=== PATIENT | female | born 1970 | race Two or more races ===

== ENCOUNTER 2021-06-20 10:22 | Inpatient (IN) | payer MEDICAID ==
[~2021-06-20] VITALS: Ht 157.5 cm; Wt 62.6 kg
--- NOTE | 2021-06-20 10:39 | PHYS DOC ---
Past Medical History Past Medical History: CAD, High Cholesterol, Heart Disease, Hypertension, VA Past Surgical History: Angioplasty Smoking Status: Current Every Day Smoker Alcohol Use: None Drug Use: None General Adult EDM: Chief Complaint: CHEST PAIN HPI: HPI: Patient is a 50 year old female who presents via EMS from her long-term facility ([facility] in [place]) for evaluation of chest pain. Chest pain symptoms actually began yesterday, while she was outside smoking a cigarette, then her pain resolved spontaneously. Chest pain recurred again this morning. She describes midsternal and right-sided chest pain, rating to her right shoulder and down her right arm. She describes the pain as a pressure sensation. She denies dyspnea, pleuritic pain, cough, abscess. She does report some mild dizziness and mild nausea, all of which are resolved. She has had history of multiple MIs because of multiple coronary artery stents, multiple stents in her LAD and RCA. She had her last VA in October 2020. She brings with her paperwork indicating her last stents were placed exactly 1 year ago. She has not previously been at this facility. Her previous care had been in [facility]. She is recently to the [facility] after having complications from COVID-19 infection. She also has COPD, she continues to smoke tobacco. EMS gave 324 mg aspirin, 2 nitroglycerin tablets in route. The patient reports that she still had some pain, though shortly after arrival, she reports that her pain resolved. She did have some relative hypotension here, which is improved after IV fluid administration. She does report that this feels like previous VA symptoms. Review of Systems: Review of Systems: Constitutional: Denies fever or chills. [] HENT: Denies nasal congestion or sore throat. [] Respiratory: Denies cough or shortness of breath. Denies pleuritic pain or hemoptysis. Cardiovascular: Reports mid sternal and right sided chest pain. Denies palpi taitons or syncope. GI: Denies abdominal pain, nausea, vomiting : Denies urinary symptoms. Musculoskeletal: Denies back pain or joint pain. [] Integument: Denies rash. [] Neurologic: Denies headache, focal weakness or sensory changes. [] Psychiatric: Denies depression or anxiety. [] Heart Score: C/O Chest Pain: Yes HEART Score for Chest Pain: HEART Score for Chest Pain Response (Comments) Value History Moderately Suspicious 1 ECG Nonspecific Repolarizatio 1 Age >45 - < 65 1 Risk Factors >3 Risk Factors or Hx CAD 2 Troponin < Normal Limit 0 Total 5 Risk Factors: Risk Factors: DM, Current or recent (<one month) smoker, HTN, HLP, family history of CAD, obesity. Risk Scores: Score 0 - 3: 2.5% MACE over next 6 weeks - Discharge Home Score 4 - 6: 20.3% MACE over next 6 weeks - Admit for Clinical Observation Score 7 - 10: 72.7% MACE over next 6 weeks - Early Invasive Strategies Physical Exam: PE: Constitutional: Well developed, well nourished, no acute distress, non-toxic appearance. She appears older than stated age. Chronically ill-appearing. HENT: Normocephalic, atraumatic, oropharynx is patent and clear, mucous membranes are moist Eyes: Conjunctiva normal, no discharge. [] Neck: Normal range of motion, no tenderness, supple, no stridor. Trachea is midline. No JVD. Cardiovascular:Heart rate regular rhythm, +2 radial and +2 posterior tibial pu lses bilaterally Lungs & Thorax: Lungs are clear to auscultation bilateral without rales, rhonchi or wheezes. No stridor. Equal chest rise. No tachypnea, no retractions. Palpation of the right upper chest causes tenderness, reproduces her chest pain. No crepitus or subcutaneous emphysema. No evidence of chest or thorax trauma Abdomen: Abdomen is soft, nondistended, nontender to palpation. No palpable pulsatile mass. No palpable organomegaly. No CVA tenderness. Skin: Warm, dry, no erythema, no rash. [] Back: No tenderness, no CVA tenderness. [] Extremities: No tenderness, no cyanosis, no clubbing, ROM intact, no edema. No calf tenderness. Neurologic: Alert and oriented X 3, normal motor function, normal sensory function, no focal deficits noted. [] Psychologic: Affect is flat, she is cooperative EKG: EKG: EKG is interpreted at 1024 Rhythm is sinus Rate is 81 bpm [place] is normal No STEMI EKG is interpreted at 1132 Rhythm is sinus Rate is 82 bpm [place] is normal No STEMI, no acute changes Radiology/Procedures: Radiology/Procedures: IMAGING REPORT Signed PATIENT: DOMENICO GONZALEZ ACCOUNT: [id number] : 1970 LOCATION: ER AGE: 50 SEX: F EXAM STATUS: REG ER ORD. PHYSICIAN: PRERNA ROSAS DO REASON: chest pain PROCEDURE: PORTABLE CHEST 1V Exam Date: 06/20/2021 10:56 AM XR CHEST 1V Indication: Reason: chest pain / Spl. Instructions: / History: . FINDINGS/ IMPRESSION: The cardiac silhouette and pulmonary vasculature are within normal limits. There is no focal consolidation, pleural effusion or pneumothorax. The visualized osseous structures are intact. Electronically signed by: Raissa Mejía MD (06/20/2021 11:10 AM) [id number] DICTATED and SIGNED BY: RAISSA MEJÍA MD DATE: 06/20/21 1110 Course & Med Decision Making: Course & Med Decision Making Pertinent Labs and Imaging studies reviewed. (See chart for details) The findings, differential diagnosis and plan of care discussed with the patient. Relative hypotension resolved after IV fluid administration. She reports no further chest pain at this time. Dr. Vázquez reviewed EKG, agrees with no acute ischemia, no STEMI. The patient will be admitted, cardiology will be consulted. The patient is accepted for admission by Dr. Monteiro. Savage Disclaimer: Savage Disclaimer: This electronic medical record was generated, in whole or in part, using a voice recognition dictation system. Departure Departure Impression: Primary Impression: Chest pain Qualified Codes: R07.9 - Chest pain, unspecified Additional Impressions: Coronary artery disease Qualified Codes: I25.10 - Atherosclerotic heart disease of [place] coronary artery without angina pectoris History of VA (myocardial infarction) Disposition: ADMITTED INPATIENT Admitting Physician: Madi. Ross Condition: STABLE Referrals: MARTI MONTEIRO MD (PCP) PRERNA ROSAS DO Jun 20, 2021 10:39
[2021-06-20 10:48] LABS: BASO # 0.1 x10^3/uL (0.0-0.2); BASO % 1 % (0-3); EOS # 0.6 x10^3/uL (0.0-0.7); EOS % 7 % (0-3); HEMATOCRIT 28.2 % (36.0-47.0); HEMOGLOBIN 9.3 g/dL (12.0-15.5); LYMPH % 23 % (24-48); MEAN CORPUSCULAR HEMOGLOBIN 32 pg (25-35); MEAN CORPUSCULAR HGB CONC 33 g/dL (31-37); MEAN CORPUSCULAR VOLUME 96 fL (79-100); MONO # 0.8 x10^3/uL (0.0-1.1); MONO % 9 % (0-9); NEUT # 5.4 x10^3/uL (1.8-7.7); NEUT % 61 % (31-73); PLATELET COUNT 371 x10^3/uL (140-400); RED BLOOD COUNT 2.94 x10^6/uL (3.50-5.40); RED CELL DISTRIBUTION WIDTH 14.3 % (11.5-14.5); WHITE BLOOD COUNT 8.8 x10^3/uL (4.0-11.0)
[2021-06-20 11:01] LABS: CALCIUM 9.3 mg/dL (8.5-10.1); GFR 58.2; POTASSIUM 4.5 mmol/L (3.5-5.1)
[2021-06-20 11:04] LABS: BACTERIA,URINE FEW /HPF (0-FEW); RBC,URINE 0 /HPF (0-2)
[2021-06-20 11:07] LABS: ALBUMIN 3.5 g/dL (3.4-5.0); TOTAL BILIRUBIN 0.2 mg/dL (0.2-1.0); TOTAL PROTEIN 7.1 g/dL (6.4-8.2)
--- NOTE | 2021-06-20 11:13 | RAD ---
Exam Date: 06/20/2021 10:56 AM XR CHEST 1V Indication: Reason: chest pain / Spl. Instructions: / History: . FINDINGS/ IMPRESSION: The cardiac silhouette and pulmonary vasculature are within normal limits. There is no focal consolidation, pleural effusion or pneumothorax. The visualized osseous structures are intact. Electronically signed by: Thomas Mejía MD (06/20/2021 11:10 AM) [id number]
[2021-06-20] MEDS ORDERED: IV NORMAL SALINE 1000ML BAG 1,000 ML IV ONE (11:45)
--- NOTE | 2021-06-20 11:54 | EKG ---
[facility] [address] [place] [address] Test Date: 2021-06-20 Test Time: 10:24:02 Pat Name: DOMENICO GONZALEZ Department: Room: [facility] Gender: F Surgical Pathologist: : 1970 Requested By: PRERNA ROSAS Order Number: [id number] Reading MD: Haris Durham Measurements Intervals [place] Rate: 81 P: 34 [place]: 160 QRS: 27 QRSD: 82 T: 121 QT: 350 QTc: 412 Interpretive Statements SINUS RHYTHM LOW LIMB LEAD VOLTAGE ST & T ABNORMALITY, CONSIDER ANTEROLATERAL ISCHEMIA OR LEFT VENTRICULAR STRAIN Electronically Signed On 06-22-2021 21:30:41 CDT by Haris Durham
--- NOTE | 2021-06-20 11:55 | EKG ---
[facility] [address] [place] [address] Test Date: 2021-06-20 Test Time: 11:30:05 Pat Name: DOMENICO GONZALEZ Department: Room: [facility] Gender: F Certified Pharmacy Tech: : 1970 Requested By: PRERNA ROSAS Order Number: [id number] Reading MD: Haris Durham Measurements Intervals [place] Rate: 82 P: 59 CT: 176 QRS: 35 QRSD: 82 T: 115 QT: 358 QTc: 421 Interpretive Statements SINUS RHYTHM LOW LIMB LEAD VOLTAGE ST & T ABNORMALITY, CONSIDER ANTEROLATERAL ISCHEMIA OR LEFT VENTRICULAR STRAIN Electronically Signed On 06-22-2021 21:29:35 CDT by Haris Durham
[2021-06-20 12:30] VITALS: BP 96/58
[2021-06-20 14:44] VITALS: BP 105/56
[2021-06-20 19:39] VITALS: BP 106/55
[2021-06-20] MEDS ORDERED: MENT118G TP (22:03)
[2021-06-20] MEDS ORDERED: ACET325T21 PO (22:03)
[2021-06-20] MEDS ORDERED: ALBU2.5V14 NEB (22:03)
[2021-06-20] MEDS ORDERED: CYAN100031 PO (22:03)
[2021-06-20] MEDS ORDERED: BUME2TAB3 PO (22:03)
[2021-06-20] MEDS ORDERED: INSU100V6 SQ (22:03)
[2021-06-20] MEDS ORDERED: MAGN400T48 PO (22:03)
[2021-06-20] MEDS ORDERED: FERR324T14 PO (22:03)
[2021-06-20] MEDS ORDERED: TIOT18CA IH (22:03)
[2021-06-20] MEDS ORDERED: METO25TA4 PO (22:03)
[2021-06-20] MEDS ORDERED: ASPI-630 PO (22:03)
[2021-06-20] MEDS ORDERED: VENL75TA PO (22:03)
[2021-06-20] MEDS ORDERED: INSU100I13 SQ (22:03)
[2021-06-20] MEDS ORDERED: FLUT16SP NS (22:03)
[2021-06-20] MEDS ORDERED: TICA90TA PO (22:03)
[2021-06-20] MEDS ORDERED: CETI10TA74 PO (22:03)
[2021-06-20] MEDS ORDERED: FOLI0.4T5 PO (22:03)
[2021-06-20] MEDS ORDERED: LIPITOR80 MG PO (22:03)
[2021-06-20] MEDS ORDERED: MIRT-8 PO (22:03)
[2021-06-20] MEDS ORDERED: TRAM50TA PO (22:03)
[2021-06-20] MEDS ORDERED: FLUTICASONE 50MCG/NASAL SPRAY 16GM BOTTLE. NS PRN (22:15)
[2021-06-20] MEDS ORDERED: traMADol 50 MG TABLET PO PRN (22:15)
[2021-06-20 22:19] VITALS: BP 99/48
[2021-06-20] MEDS: ACETAMINOPHEN 325 MG TABLET. PO PRN (22:37)
[2021-06-20] MEDS ORDERED: METHYL SALICYLATE/MENTHOL TOPICAL CREAM 57GM TUBE. TP PRN (22:45)
[2021-06-20] MEDS: INSULIN GLARGINE SYRINGE. SQ SCH ×2 (23:52→23:59)
[2021-06-20] MEDS: MIRTAZAPINE 15 MG TABLET PO SCH ×2 (23:53→23:58)
[2021-06-20] MEDS: ATORVASTATIN CALCIUM 40 MG TABLET. PO SCH ×2 (23:53→23:58)
[2021-06-20] MEDS: METOPROLOL TART IMMED RELEASE 25 MG TABLET. PO SCH (23:54)
[2021-06-21 02:25] VITALS: BP 105/58
[2021-06-21] MEDS: ALBUTEROL SULFATE 2.5 MG/3 ML NEBU. NEB SCH ×5 (06:00→22:00)
[2021-06-21 07:00] VITALS: BP 83/45
[2021-06-21] MEDS: IPRATRPIUM/ALBUTEROL 0.5/2.5MG 3 ML NEBU. NEB SCH ×4 (08:00→19:18)
[2021-06-21] MEDS: CYANOCOBALAMIN (VITAMIN B-12) 1,000 MCG TABLET. PO SCH (08:13)
[2021-06-21] MEDS: FERROUS SULFATE 325 MG TABLET. PO SCH ×2 (08:14→17:14)
[2021-06-21] MEDS: MAGNESIUM OXIDE 400 MG TABLET PO SCH (08:14)
[2021-06-21] MEDS: ASPIRIN CHEWABLE 81 MG TABLET. PO SCH (08:14)
[2021-06-21] MEDS: CETIRIZINE HCL 10 MG TABLET. PO SCH (08:15)
[2021-06-21] MEDS: TICAGRELOR 90 MG TABLET. PO SCH ×2 (08:15→21:25)
[2021-06-21] MEDS: FOLIC ACID 1 MG TABLET. PO SCH (08:15)
[2021-06-21] MEDS: VENLAFAXINE 75 MG TABLET. PO SCH (08:15)
[2021-06-21] MEDS: INSULIN LISPRO 300 UNITS/3 ML VIAL. SQ SCH ×3 (08:23→17:18)
[2021-06-21] MEDS ORDERED: BUMETANIDE 1 MG TABLET. PO SCH (09:00)
--- NOTE | 2021-06-21 10:25 | PN ---
DATE: 06/21/2021 SUBJECTIVE: The patient is resting, slightly propped up in bed, in no apparent distress. On questioning her, she denied any further episode of chest pain or shortness of breath. She has had 3 sets of cardiac enzyme showed that her initial troponin was 38 ng/L. The second one was 42 and third was 36. EKG was showing sinus rhythm, no evidence of segment elevation or depression. PHYSICAL EXAMINATION: GENERAL: When I examined her, she looked well and was clearly in no apparent respiratory distress. She was pale, but not jaundiced or cyanosed. No thyromegaly. No jugular venous distention. No limb edema. VITAL SIGNS: Her heart rate was 87, blood pressure was 105/56, temperature was 98, respiratory rate was 16 and oxygen saturation was 100% on room air. HEAD, EYES, EARS, NOSE, AND THROAT: Normocephalic, atraumatic. NECK: Supple. HEART: Showed normal first and second heart sounds. No gallop, rub or murmur. CHEST: Clear to auscultation, no crepitation or rhonchi. ABDOMEN: Distended, soft, nontender. NEUROLOGIC: She was grossly intact. ASSESSMENT AND PLAN: In summary, this is a 50-year-old female patient with history of coronary artery disease, status post multiple myocardial infarctions and PCI with stent deployment to the right coronary artery and left anterior descending. She has multiple risk factors. She has hypertension, diabetes, hyperlipidemia, and unfortunately, she continued to smoke despite multiple attempts to convince her otherwise. She was admitted with chest pain that apparently induced twice when she was outside facility smoking. So far, she has 3 sets of cardiac enzymes that ruled out acute myocardial infarction. We are awaiting the evaluation by the able bodied tankerman. Meanwhile, we will continue with all her other medications. DANITZA DR: Dunia TID: [id number]
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
[2021-06-21 11:00] VITALS: BP 91/49
--- NOTE | 2021-06-21 13:22 | PDOC2 ---
PETR PORTILLO BUTTON ATTACHING MACHINE OPERATOR 06/21/21 1322: CARDIAC CONSULT DATE OF CONSULT Date of Consult DATE: 06/21/21 TIME: 13:12 REASON FOR CONSULT Reason for Consult: Chest pain with multiple stents REFERRING PHYSICIAN Referring Physician: Cayetano SOURCE Source: Chart review, Patient HISTORY OF PRESENT ILLNESS HISTORY OF PRESENT ILLNESS This is a 50 yo female admitted for complains of chest pain. She resides at [facility]. she started having chest pain after smoking cigarette this morning which has been recurring. This then went to her right arm. No complains SOA but has had some nausea and dizziness. She has hx of CAD with multiple stents in the past. She has had covid-19 and after recovery was transferred to SNU. She had her stents placed around May of last yr at [facility]. Presently no discomfort. PAST MEDICAL HISTORY Cardiovascular: CAD, CHF, HTN, Hyperlipidemia, Valve insufficiency, Other (ICM) Pulmonary: Asthma, COPD CENTRAL NERVOUS SYSTEM: CVA, TIA GI: No pertinent hx Heme/Onc: Anemia NOS, Other (DVT) Hepatobiliary: Cholelithiasis Psych: No pertinent hx Infectious disease: No pertinent hx ENT: No pertinent hx, Allergic Rhinitis Endocrine: Diabetes (2) Dermatology: No pertinent hx PAST SURGICAL HISTORY Past Surgical History: Cholecystectomy, Other (LLE thrombectomy, PCI with 5 total stents) FAMILY HISTORY Family History: Hypertension SOCIAL HISTORY Smoke: <1 pack per day ALCOHOL: none Drugs: None Lives: [place] CURRENT MEDICATIONS CURRENT MEDICATIONS Current Medications Medications (Trade) Dose Ordered Sig/Todd Route PRN Reason Start Time Stop Time Status Last Admin Dose Admin Acetaminophen (Tylenol) 650 mg PRN Q4HRS PRN PO MILD pain or fever 06/20/21 22:15 06/20/21 22:37 Aspirin (Aspirin Chewable) 81 mg DAILY PO 06/21/21 09:00 06/21/21 08:14 Cetirizine HCl (ZyrTEC) 10 mg DAILY PO 06/21/21 09:00 06/21/21 08:15 Insulin Human Lispro (HumaLOG) 6 units TIDWMEALS SQ 06/21/21 08:00 06/21/21 11:59 Magnesium Oxide (Magnesium Oxide) 400 mg DAILY PO 06/21/21 09:00 06/21/21 08:14 Metoprolol Tartrate (Lopressor) 25 mg BID PO 06/20/21 23:00 06/20/21 23:54 Ticagrelor (Brilinta) 90 mg BID PO 06/21/21 09:00 06/21/21 08:15 Venlafaxine HCl (Effexor) 75 mg DAILY PO 06/21/21 09:00 06/21/21 08:15 Atorvastatin Calcium (Lipitor) 80 mg HS PO 06/20/21 23:00 06/20/21 23:58 Cyanocobalamin (Vitamin B-12) 1,000 mcg DAILY PO 06/21/21 09:00 06/21/21 08:13 Ferrous Sulfate (Feosol) 325 mg BIDWMEALS PO 06/21/21 08:00 06/21/21 08:14 Folic Acid (Folic Acid) 1 mg DAILY PO 06/21/21 09:00 06/21/21 08:15 Insulin Glargine (Lantus Syringe) 20 unit QHS SQ 06/20/21 22:45 06/20/21 23:59 Mirtazapine (Remeron) 30 mg QHS PO 06/20/21 23:00 06/20/21 23:58 ALLERGIES ALLERGIES: Coded Allergies: Penicillins (Verified Allergy, Unknown, 06/20/21) ROS Review of System 14 point ROS evaluated with pertinent positives noted per HPI PHYSICAL EXAM General: Alert, Oriented X3, Cooperative, No acute distress HEENT: Atraumatic, Mucous membr. moist/pink Lungs: Clear to auscultation, Normal air movement Heart: Regular rate (SR), Normal S1, Normal S2, Other (2/6 systolic murmur to LLS border) Abdomen: Soft, No tenderness Extremities: No cyanosis, No edema Skin: No breakdown, No significant lesion Neuro: Normal speech, Sensation intact Psych/Mental Status: Mental status NL, Mood NL MUSCULOSKELETAL: Osteoarthritic changes both hands VITALS/I&O VITALS/I&O: Vital Signs Date Time Temp Pulse Resp B/P (MAP) Pulse Ox O2 Delivery O2 Flow Rate FiO2 06/21/21 11:09 99 Room Air 06/21/21 11:00 97.3 99 18 91/49 (63) 97.3 I & O 06/20/21 06/20/21 06/21/21 15:00 23:00 07:00 Intake Total 1250 ml 420 ml 500 ml Output Total 1200 ml Balance 1250 ml -780 ml 500 ml LABS Lab: Laboratory Tests Test 06/20/21 13:38 06/20/21 16:40 06/20/21 16:47 06/20/21 20:54 Troponin I High Sensitivity 42 ng/L (4-50) 36 ng/L (4-50) Glucose (Fingerstick) 164 mg/dL (70-99) H 309 mg/dL (70-99) H Test 06/21/21 07:51 06/21/21 11:35 Glucose (Fingerstick) 132 mg/dL (70-99) H 131 mg/dL (70-99) H ASSESSMENT/PLAN ASSESSMENT/PLAN 1. Chest pain: trops nml, absent currently 2. CAD: 5 total stents with last placement in 2020 3. Hx of ICM: compensated 4. HTN: BP at low end 5. COPD with continued tobacco use 6. HLP 7. DM2 8. Hx of Covid-19 Recommendations 1. Continue ASA and brilinta. Secondary prevention measures. Continue BP meds if BP is consistently adequate. 2. TTE Repeat troponin 3. Will consider ischemic workup pending test as above. 4. Follow up with Dr. Edwards on July 29 at 1:15 PM REGINE EDWARDS MD 06/21/21 1805: CARDIAC CONSULT ASSESSMENT/PLAN ASSESSMENT/PLAN Patient seen and examined The patient's chest pain has resolved. She is feeling better. I agree with our nurse practitioners assessment and plan. Chest pain: trops nml, recent multiple stents placed. Echo pending. We will continue medical treatment and check a nuclear stress test in the morning. Outpatient follow-up. CAD: 5 total stents with last placement in 2020. Continuing baseline medical treatment including aspirin and Brilinta. Hx of ICM: compensated HTN: BP at low end COPD with continued tobacco use HLP DM2 Hx of Covid-19 PETR PORTILLO BUTTON ATTACHING MACHINE OPERATOR Jun 21, 2021 13:22 REGINE EDWARDS MD Jun 21, 2021 18:05
--- NOTE | 2021-06-21 13:27 | NUR ---
SS following for discharge planning. SS reviewed pt chart and discussed with pt RN. Pt is from home with spouse and is currently on room air. Cardiology consulted. SS will continue to follow for discharge planning. Addendum: 06/21/21 at 1511 by MAURICIO TEAGUE SS CORRECTION TO PREVIOUS NOTE: Pt is from [facility], ; fax [phone]
--- NOTE | 2021-06-21 14:41 | EKG ---
[facility] [address] [place] [address] Test Date: 2021-06-21 Test Time: 14:34:26 Pat Name: DOMENICO GONZALEZ Department: Room: 8 Gender: F Basic Acoustic Analyst: AXEL : 1970 Requested By: PETR PORTILLO Order Number: [id number] Reading MD: Measurements Intervals [place] Rate: 111 P: 63 NM: 146 QRS: 42 QRSD: 80 T: 126 QT: 316 QTc: 433 Interpretive Statements SINUS TACHYCARDIA LOW LIMB LEAD VOLTAGE ST & T ABNORMALITY, CONSIDER ANTEROLATERAL ISCHEMIA OR LEFT VENTRICULAR STRAIN ABNORMAL ECG RI6.02 Compared to ECG 06/20/2021 11:30:05 Sinus rhythm no longer present T-wave abnormality still present Possible ischemia still present
[2021-06-21 14:45] VITALS: BP 103/57
[2021-06-21] MEDS: METOPROLOL TART IMMED RELEASE 25 MG TABLET. PO SCH ×2 (15:48→21:26)
[2021-06-21 19:28] VITALS: BP 119/63
[2021-06-21 23:15] VITALS: BP 108/52
[2021-06-21] MEDS: ACETAMINOPHEN 325 MG TABLET. PO PRN (23:33)
[2021-06-22 03:24] VITALS: BP 99/51
[2021-06-22 07:00] VITALS: BP 89/39
[2021-06-22] MEDS: IPRATRPIUM/ALBUTEROL 0.5/2.5MG 3 ML NEBU. NEB SCH ×4 (07:43→20:37)
[2021-06-22] MEDS: ACETAMINOPHEN 325 MG TABLET. PO PRN (08:39)
[2021-06-22] MEDS ORDERED: REGADENOSON 0.4 MG/5 ML DISP.SYRIN. IV ONE ×2 (08:45→09:30)
--- NOTE | 2021-06-22 09:53 | PN ---
DATE: 06/22/2021 SUBJECTIVE: The patient has no further episodes of chest pain and was complaining of headache. Nursing staff stated that she continued to be hypotensive with a blood pressure rates around 90 mmHg despite holding her bumetanide and metoprolol. She is apparently scheduled for nuclear stress test this morning. PHYSICAL EXAMINATION: GENERAL: On examining her, she looked pale somewhat, not jaundiced or cyanosed. No lymphadenopathy, no thyromegaly. No jugular venous distention. No limb edema. VITAL SIGNS: Her heart rate was 95, blood pressure was 89/39, temperature 97.9, respiratory rate was 16, her oxygen saturation was 95%. HEAD, EYES, EARS, NOSE, AND THROAT: Showed normocephalic, atraumatic. NECK: Supple. HEART: Showed normal first and second heart sounds. No gallop, rub or murmur. CHEST: Clear to auscultation. No crepitation or rhonchi. ABDOMEN: Scaphoid, soft, nontender. NEUROLOGIC: She was grossly intact. Her intake was 2170, output was 1200. LABORATORY WORK: Showed her serum triglycerides 132, total cholesterol 160, LDL was 81, VLDL was 26, HDL was 63 and ratio was 3. Her blood sugar reasonably controlled. ASSESSMENT: Chest pain with normal troponin, coronary artery disease, 5 total stents, the last placement was in 2020, ischemic cardiomyopathy, hypertension, chronic obstructive pulmonary disease. Unfortunately, the patient continued to smoke despite advising her multiple times, hyperlipidemia, type 2 diabetes mellitus. PLAN: The patient is scheduled for transthoracic echocardiogram as well as nuclear stress test. BERNABE PEARCE: Dunia TID: [id number]
[2021-06-22] MEDS: TICAGRELOR 90 MG TABLET. PO SCH ×2 (10:46→20:17)
[2021-06-22] MEDS: ASPIRIN CHEWABLE 81 MG TABLET. PO SCH (10:46)
[2021-06-22] MEDS: CETIRIZINE HCL 10 MG TABLET. PO SCH (10:46)
[2021-06-22 10:47] VITALS: BP 99/45
[2021-06-22] MEDS: MAGNESIUM OXIDE 400 MG TABLET PO SCH (10:47)
[2021-06-22] MEDS: FERROUS SULFATE 325 MG TABLET. PO SCH ×2 (10:47→17:08)
[2021-06-22] MEDS: FOLIC ACID 1 MG TABLET. PO SCH (10:47)
[2021-06-22] MEDS: VENLAFAXINE 75 MG TABLET. PO SCH (10:47)
[2021-06-22] MEDS: CYANOCOBALAMIN (VITAMIN B-12) 1,000 MCG TABLET. PO SCH (10:47)
[2021-06-22] MEDS: INSULIN LISPRO 300 UNITS/3 ML VIAL. SQ SCH ×3 (10:57→17:11)
--- NOTE | 2021-06-22 11:07 | PDOC ---
PROGRESS NOTES Date of Service: DATE: 06/22/21 TIME: 11:07 Subjective Subjective Denied any CP today Objective Objective Vital Signs Date Time Temp Pulse Resp B/P (MAP) Pulse Ox O2 Delivery O2 Flow Rate FiO2 06/22/21 10:47 97.1 109 16 99/45 (63) 99 Room Air 97.1 Intake and Output 06/22/21 07:00 Intake Total 1020 ml Output Total 2300 ml Balance -1280 ml Intake Oral 1020 ml Output Urine Total 2300 ml Physical Exam Abdomen: Soft, No tenderness Heart: Regular rate (SR), Normal S1, Normal S2, Other (2/6 systolic murmur to LLS border) Extremities: No cyanosis, No edema General: Alert, Oriented X3, Cooperative, No acute distress HEENT: Atraumatic, Mucous membr. moist/pink Lungs: Clear to auscultation, Normal air movement MUSCULOSKELETAL: Osteoarthritic changes both hands Neuro: Normal speech, Sensation intact Psych/Mental Status: Mental status NL, Mood NL Skin: No breakdown, No significant lesion Assessment Assessment 1. Chest pain: AL ruled out 2. CAD: 5 total stents with last placement in 2020 3. Hx of ICM: compensated 4. HTN: BP at low end 5. COPD with continued tobacco use 6. HLP 7. DM2 8. Hx of Covid-19 Recommendations 1. Continue ASA and brilinta. Secondary prevention measures. 2. BP running low and initial labs prerenal 3. Decrease bumex dose and repeat labs 4. MPI to rule out ischemia today Plan Plan of Care Problems Medical Problems: (1) Chest pain Status: Acute (2) Coronary artery disease Status: Acute (3) History of AL (myocardial infarction) Status: Acute Comment Review of Relevant I have reviewed the following items emily (where applicable) has been applied. Labs Laboratory Tests Test 06/21/21 11:35 06/21/21 14:20 06/21/21 16:42 06/21/21 20:34 Glucose (Fingerstick) 131 mg/dL (70-99) 143 mg/dL (70-99) 173 mg/dL (70-99) Troponin I High Sensitivity 25 ng/L (4-50) Test 06/22/21 03:00 06/22/21 07:50 Triglycerides Level 132 mg/dL (0-150) Cholesterol Level 160 mg/dL (0-200) LDL Cholesterol, Calculated 81 mg/dL (0-100) VLDL Cholesterol, Calculated 26 mg/dL (0-40) Non-HDL Cholesterol Calculated 107 mg/dL (0-129) HDL Cholesterol 53 mg/dL (40-60) Cholesterol/HDL Ratio 3.0 Glucose (Fingerstick) 151 mg/dL (70-99) Medications Current Medications Regadenoson (Lexiscan) 0.4 mg 1X ONCE IV ; Start 06/22/21 at 08:45; Stop 06/22/21 at 08:46; Status DC Vitals/I & O Vital Sign - Last 24 Hours 06/21/21 06/21/21 06/21/21 06/21/21 11:09 14:45 15:48 16:18 Temp 98.2 98.2 Pulse 102 113 Resp 18 B/P (MAP) 103/57 (72) 103/57 Pulse Ox 99 99 98 O2 Delivery Room Air Room Air Room Air 06/21/21 06/21/21 06/21/21 06/21/21 19:22 19:28 20:00 21:26 Temp 98.4 98.4 Pulse 93 95 Resp 20 B/P (MAP) 119/63 (81) 119/63 Pulse Ox 100 100 O2 Delivery Room Air Room Air Room Air 06/21/21 06/22/21 06/22/21 06/22/21 23:15 03:24 07:00 07:44 Temp 98.1 98.0 97.9 98.1 98.0 97.9 Pulse 89 89 95 Resp 20 20 16 B/P (MAP) 108/52 (70) 99/51 (67) 89/39 (56) Pulse Ox 99 97 95 95 O2 Delivery Room Air Room Air Room Air Room Air 06/22/21 06/22/21 08:00 10:47 Temp 97.1 97.1 Pulse 109 Resp 16 B/P (MAP) 99/45 (63) Pulse Ox 99 O2 Delivery Room Air Room Air Intake and Output 06/21/21 06/21/21 06/22/21 15:00 23:00 07:00 Intake Total 360 ml 180 ml 480 ml Output Total 2300 ml Balance 360 ml 180 ml -1820 ml DEMARCO RAMIREZ MD Jun 22, 2021 11:07
[2021-06-22] MEDS: METOPROLOL TART IMMED RELEASE 25 MG TABLET. PO SCH ×2 (12:37→20:17)
[2021-06-22 15:00] VITALS: BP 113/56
[2021-06-22 17:30] LABS: CALCIUM 8.8 mg/dL (8.5-10.1); CREATININE 1.2 mg/dL (0.6-1.0); GFR 47.2; POTASSIUM 4.6 mmol/L (3.5-5.1)
[2021-06-22 19:13] VITALS: BP 113/57
[2021-06-22] MEDS: ATORVASTATIN CALCIUM 40 MG TABLET. PO SCH (20:17)
[2021-06-22] MEDS: MIRTAZAPINE 15 MG TABLET PO SCH (20:18)
[2021-06-22] MEDS: INSULIN GLARGINE SYRINGE. SQ SCH (20:23)
[2021-06-22 23:01] VITALS: BP 101/52
[2021-06-23] VITALS (7 sets, daily range): BP systolic 75–109; BP diastolic 44–62
[2021-06-23] MEDS: IPRATRPIUM/ALBUTEROL 0.5/2.5MG 3 ML NEBU. NEB SCH ×4 (07:35→21:12)
[2021-06-23] MEDS: INSULIN LISPRO 300 UNITS/3 ML VIAL. SQ SCH ×3 (08:00→18:29)
--- NOTE | 2021-06-23 08:18 | PDOC ---
PROGRESS NOTES Date of Service: DATE: 06/23/21 TIME: 08:18 Subjective Subjective Denied any chest pain Objective Objective Vital Signs Date Time Temp Pulse Resp B/P (MAP) Pulse Ox O2 Delivery O2 Flow Rate FiO2 06/23/21 07:36 95 Room Air 06/23/21 03:22 97.4 110 21 102/56 (71) 97.4 Intake and Output 06/23/21 07:00 Intake Total 1480 ml Output Total 1500 ml Balance -20 ml Intake Oral 1480 ml Output Urine Total 1500 ml Physical Exam Abdomen: Soft, No tenderness Heart: Regular rate (SR), Normal S1, Normal S2, Other (2/6 systolic murmur to LLS border) Extremities: No cyanosis, No edema General: Alert, Oriented X3, Cooperative, No acute distress HEENT: Atraumatic, Mucous membr. moist/pink Lungs: Clear to auscultation, Normal air movement MUSCULOSKELETAL: Osteoarthritic changes both hands Neuro: Normal speech, Sensation intact Psych/Mental Status: Mental status NL, Mood NL Skin: No breakdown, No significant lesion Assessment Assessment 1. Chest pain: SC ruled out 2. CAD: 5 total stents with last placement in 2020 3. Hx of ICM: compensated 4. HTN: BP at low end 5. COPD with continued tobacco use 6. HLP 7. DM2 8. Hx of Covid-19 Recommendations 1. Continue ASA and brilinta. Secondary prevention measures. 2. Blood pressure improving after decreasing Bumex dose 3. Lexiscan nuclear stress test showed moderate infarct involving mid to distal anteroseptal and apical wall and another moderate infarct involving mid to distal inferolateral and lateral walker. No significant ischemia was noted. LVEF 35%. 4. Cannot initiate Entresto secondary to marginal blood pressure. We will readdress this as an outpatient. 5. Repeat 2D echo in 3 months to evaluate the need for AICD implantation. Okay for DC from cardiac standpoint Plan Plan of Care Problems Medical Problems: (1) Chest pain Status: Acute (2) Coronary artery disease Status: Acute (3) History of SC (myocardial infarction) Status: Acute Comment Review of Relevant I have reviewed the following items emily (where applicable) has been applied. Labs Laboratory Tests Test 06/22/21 11:50 06/22/21 16:49 06/22/21 20:19 06/23/21 08:01 Glucose (Fingerstick) 380 mg/dL (70-99) 221 mg/dL (70-99) 210 mg/dL (70-99) 147 mg/dL (70-99) Medications Current Medications Bumetanide (Bumex) 1 mg DAILY PO ; Start 06/23/21 at 09:00 Regadenoson (Lexiscan) 0.4 mg 1X ONCE IV ; Start 06/22/21 at 08:45; Stop 06/22/21 at 08:46; Status DC Vitals/I & O Vital Sign - Last 24 Hours 06/22/21 06/22/21 06/22/21 06/22/21 10:47 11:45 12:37 15:00 Temp 97.1 97.5 97.1 97.5 Pulse 109 111 90 Resp 16 18 B/P (MAP) 99/45 (63) 104/50 113/56 (75) Pulse Ox 99 100 O2 Delivery Room Air Room Air Room Air 06/22/21 06/22/21 06/22/21 06/22/21 15:38 19:13 20:00 20:17 Temp 97.5 97.5 Pulse 100 95 Resp 21 B/P (MAP) 113/57 (75) 113/57 Pulse Ox 100 O2 Delivery Room Air Room Air Room Air 06/22/21 06/22/21 06/23/21 06/23/21 20:34 23:01 03:22 07:36 Temp 97.7 97.4 97.7 97.4 Pulse 101 110 Resp 20 21 B/P (MAP) 101/52 (68) 102/56 (71) Pulse Ox 97 93 95 O2 Delivery Room Air Room Air Room Air Room Air Intake and Output 06/22/21 06/22/21 06/23/21 15:00 23:00 07:00 Intake Total 500 ml 500 ml 480 ml Output Total 1500 ml Balance 500 ml 500 ml -1020 ml DEMARCO RAMIREZ MD Jun 23, 2021 08:18
--- NOTE | 2021-06-23 10:34 | PN ---
DATE: 06/23/2021 SUBJECTIVE: The patient was sitting at the edge of the bed, comfortably, in no apparent distress. On questioning her, she denied any further episode of chest pain. Denied any shortness of breath, orthopnea, or paroxysmal nocturnal dyspnea. She has completed her nuclear stress test; however, the result of which is still pending at the time of this dictation. OBJECTIVE: GENERAL: On examining her, she looked pale, somewhat cachectic, but not jaundiced, cyanosed, no lymphadenopathy, no thyromegaly, no jugular venous distention. No lower limb edema. VITAL SIGNS: Her heart rate was 112, blood pressure was 81/46, temperature was 97.7, respiratory rate was 16 and oxygen saturation was 98% on room air. HEAD, EYES, EARS, NOSE, AND THROAT: Normocephalic, atraumatic. NECK: Supple. HEART: Normal first and second heart sounds. No gallop, rub or murmur. CHEST: Clear to auscultation, no crepitation or rhonchi. ABDOMEN: Scaphoid, soft, nontender. NEUROLOGIC: She was grossly intact. Her intake was 1020, output was 2300 and her blood sugar seems to be reasonably controlled. LABORATORY DATA: As of yesterday, her serum sodium was 137, potassium 4.6, chloride 102, bicarbonate 25, anion gap of 10, BUN 27, creatinine was 1.2. Estimated GFR was 47 mL per minute. Her glucose 154, calcium was 8.8. She has 3 sets of cardiac enzymes that ruled out acute myocardial infarction. ASSESSMENT: 1. Chest pain, acute myocardial infarction ruled out. 2. Coronary artery disease with 5 stent deployment and the last one was placed in 2020. 3. Ischemic cardiomyopathy and congestive heart failure that is well compensated. 4. Hypertension. The patient is in fact borderline hypotensive. Her Bumex was cut down. 5. Chronic obstructive pulmonary disease. The patient continued to smoke despite advising her, otherwise. 6. Hyperlipidemia. 7. Type 2 diabetes mellitus, seems to be reasonably controlled. PLAN: Obviously to continue with all her current medications. I will repeat all her labs again tomorrow. POLO/KALLI DR: Dunia TID: [id number]
[2021-06-23] MEDS: BUMETANIDE 1 MG TABLET. PO SCH (12:16)
[2021-06-23] MEDS: TICAGRELOR 90 MG TABLET. PO SCH ×2 (12:17→20:57)
[2021-06-23] MEDS: METOPROLOL TART IMMED RELEASE 25 MG TABLET. PO SCH ×2 (12:17→20:57)
[2021-06-23] MEDS: FERROUS SULFATE 325 MG TABLET. PO SCH ×2 (12:17→18:27)
[2021-06-23] MEDS: ASPIRIN CHEWABLE 81 MG TABLET. PO SCH (12:17)
[2021-06-23] MEDS: CETIRIZINE HCL 10 MG TABLET. PO SCH (12:17)
[2021-06-23] MEDS: CYANOCOBALAMIN (VITAMIN B-12) 1,000 MCG TABLET. PO SCH (12:17)
[2021-06-23] MEDS: MAGNESIUM OXIDE 400 MG TABLET PO SCH (12:18)
[2021-06-23] MEDS: FOLIC ACID 1 MG TABLET. PO SCH (12:18)
[2021-06-23] MEDS: VENLAFAXINE 75 MG TABLET. PO SCH (12:18)
--- NOTE | 2021-06-23 14:48 | RAD ---
MR#: [id number] Date of Study: 06/22/2021 Ordering Physician: PETR PORTILLO, Referring Physician: RACHEL PECK Tech: JONO Wheat ARRT (R) (N) APPROVED REPORT Test Type: Pharmacological Stress Nurse/Tech: Mercedez García R.N. Test Indications: chest pain Cardiac History: OR, stents x 6-1 yr ago, stroke, smoker, dm Medications: see ehr Medical History: see ehr Resting ECG: sr Resting Heart Rate: 93 bpm Resting Blood Pressure: 95/49mmHg Pretest Chest Pain: No chest pain Nurse/Tech Notes lungs cta, heart tones regular Consent: The procedure was explained to the patient in lay terms. Informed consent was witnessed. Jarrod eout was entered into [employer] History and Stress Test performed by JONO Wheat ARRT (R) (N) Pharm. Details Pharmacologic stress testing was performed using 0.4mg per 5ml of regadenoson given intravenously ove r 7-10 seconds. Stress Symptoms No chest pain or symptoms. POST EXERCISE Reason for Termination: Infusion complete Target HR: No Max HR: 105 bpm Max Blood Pressure: 100/51mmHg Chest Pain: No. Arrhythmia: No. ST Change: No. INTERPRETATION Stress EKG Conclusion: Baseline EKG showed sinus rhythm. Nondiagnostic changes at peak stress. No a rrhythmias. Imaging Protocol IMAGE PROTOCOL: Stress Tc-99m/rest Tc-99m 2 days Rest: Stress: Viability: Radiopharm.Tc99m Sestamibi [id number] Img Date 06/22/2021 Inj-Img [id number]. Stress Admin Site: IV - Left AntecubitalAdministrator: JONO Wheat ARRT (R)(N) STRESS DATA End Diast. Vol.180.0mlAv. Heart Nkzo307.0bpm End Syst. Vol.111.0mlCO Index BSA0.0L/min Myocardial Boca171.0gEject. Ahzhmogx99.0% Stress Rates Pk. Fill Rate2.87EDV/secLVtime Pk. Fill 57.15msec Pk. Empty Rate2.33ESV/secLVtime Pk. Fgoim362.73msec 1/3 Pk. Fill2.05EDV/sec Stress Scores Regional WT0.00Summed WT21.00 Regional WM3.00Summed WM25.00 LV Perfusion Scintigraphic images showed moderate fixed defect involving the mid to distal anteroseptal wall and t he apical wall consistent with prior myocardial infarction without any reversibility. Also seen was another moderate sized fixed defect involving mid to distal inferolateral and lateral walker consisten t with prior myocardial infarction without any reversibility. Wall Motion Moderate global left ventricular systolic dysfunction, severe hypokinesis of the posterior wall with ejection fraction calculated at 35%. LV Perf. Quant 17 Seg. SSS27.00 Stress Defect Extent (% LAD)50.60Rest Defect Extent (% LAD)Rev. Defect Extent (% LAD) Stress Defect Extent (% LCX) 65.00Rest Defect Extent (% LCX)Rev. Defect Extent (% LCX) Stress Defect Extent (% RCA)30.00Rest Defect Extent (% RCA)Rev. Defect Extent (% RCA) Stress Defect Extent (% CECY)49.10Rest Defect Extent (% CECY)Rev. Defect Extent (% CECY) Conclusion 1. Regadenoson cardioisotope stress test showed moderate infarct involving the mid to distal anterose ptal wall and apical wall without any ischemia. Also seen was another moderate infarct involving mid to distal inferolateral and lateral walker without any ischemia. 2. Moderate global left ventricular systolic dysfunction, severe hypokinesis of the posterior wall wi th ejection fraction calculated at 35%. 3. Intermediate risk for cardiac events. Signed by : Haris Durham, Electronically Approved : 06/23/2021 14:47:48
[2021-06-23] MEDS: MIRTAZAPINE 15 MG TABLET PO SCH (20:57)
[2021-06-23] MEDS: ATORVASTATIN CALCIUM 40 MG TABLET. PO SCH (20:57)
[2021-06-23] MEDS: INSULIN GLARGINE SYRINGE. SQ SCH (21:02)
[2021-06-24] MEDS: ACETAMINOPHEN 325 MG TABLET. PO PRN (00:03)
[2021-06-24 03:26] VITALS: BP 105/63
[2021-06-24 05:40] LABS: HEMATOCRIT 27.6 % (36.0-47.0); HEMOGLOBIN 9.1 g/dL (12.0-15.5); RED BLOOD COUNT 2.88 x10^6/uL (3.50-5.40); WHITE BLOOD COUNT 7.9 x10^3/uL (4.0-11.0)
[2021-06-24 06:04] LABS: ALBUMIN 3.3 g/dL (3.4-5.0); ALBUMIN/GLOBULIN RATIO 0.9 (1.0-1.7); CALCIUM 9.4 mg/dL (8.5-10.1); CREATININE 1.1 mg/dL (0.6-1.0); GFR 52.2; POTASSIUM 4.6 mmol/L (3.5-5.1); TOTAL BILIRUBIN 0.3 mg/dL (0.2-1.0)
[2021-06-24 07:00] VITALS: BP 107/65
[2021-06-24] MEDS: IPRATRPIUM/ALBUTEROL 0.5/2.5MG 3 ML NEBU. NEB SCH ×2 (07:32→11:14)
[2021-06-24] MEDS ORDERED: PERFLUTREN PROTEIN-A MICROSPHR 0.22 MG/ML 3 ML VIAL. IV ONE (07:45)
[2021-06-24] MEDS: INSULIN LISPRO 300 UNITS/3 ML VIAL. SQ SCH (08:00)
[2021-06-24] MEDS: TICAGRELOR 90 MG TABLET. PO SCH (08:36)
[2021-06-24] MEDS: ASPIRIN CHEWABLE 81 MG TABLET. PO SCH (08:36)
[2021-06-24] MEDS: VENLAFAXINE 75 MG TABLET. PO SCH (08:36)
[2021-06-24] MEDS: CETIRIZINE HCL 10 MG TABLET. PO SCH (08:36)
[2021-06-24] MEDS: FOLIC ACID 1 MG TABLET. PO SCH (08:36)
[2021-06-24] MEDS: FERROUS SULFATE 325 MG TABLET. PO SCH (08:36)
[2021-06-24] MEDS: MAGNESIUM OXIDE 400 MG TABLET PO SCH (08:36)
[2021-06-24] MEDS: BUMETANIDE 1 MG TABLET. PO SCH (08:36)
[2021-06-24] MEDS: CYANOCOBALAMIN (VITAMIN B-12) 1,000 MCG TABLET. PO SCH (08:36)
[2021-06-24] MEDS: METOPROLOL TART IMMED RELEASE 25 MG TABLET. PO SCH (08:37)
[2021-06-24] MEDS ORDERED: BUME1TAB3 PO (09:54)
[2021-06-24 11:00] VITALS: BP 102/55
--- NOTE | 2021-06-24 14:02 | NUR ---
DISCAHRGED PATIENT TO [facility]. DISCHARGE INSTRUCTIONS GIVEN TO A NURSING STAFF, VISHAL AGUILAR AND HEART MONITOR REMOVED. ESCORTED OFF UNIT PER WHEEL CHAIR.
--- NOTE | 2021-06-24 17:51 | PDOC ---
PROGRESS NOTES Date of Service DATE: 06/24/21 TIME: 17:49 Subjective Subjective Patient seen and examined Objective Objective Vital Signs Date Time Temp Pulse Resp B/P (MAP) Pulse Ox O2 Delivery O2 Flow Rate FiO2 06/24/21 11:14 99 Room Air 06/24/21 11:00 97.4 86 18 102/55 (71) 97.4 Intake and Output 06/24/21 07:00 Intake Total 960 ml Output Total 750 ml Balance 210 ml Intake Oral 960 ml Output Urine Total 750 ml Physical Exam Abdomen: Normal bowel sounds General: No acute distress Lungs: Other (Slightly decreased breath sounds) Assessment Assessment Problems Medical Problems: (1) Chest pain Status: Acute (2) Coronary artery disease Status: Acute (3) History of CA (myocardial infarction) Status: Acute 1. Chest pain: CA ruled out. Pain largely resolved with medical treatment. 2. CAD: 5 total stents with last placement in 2020. Lexiscan nuclear stress test showed 2 areas of fixed infarct as noted above. No significant ischemia is present. Ejection fraction of 45%. 3. Hx of ICM: compensated. Possible future use of Entresto when patient's blood pressure improves. Outpatient follow-up. Possible future AICD. 4. HTN: BP at low end but improving. 5. COPD with continued tobacco use 6. HLP 7. DM2 8. Hx of Covid-19 Comment Review of Relevant I have reviewed the following items emily (where applicable) has been applied. Labs Laboratory Tests Test 06/22/21 20:19 06/23/21 08:01 06/23/21 11:43 06/23/21 17:12 Glucose (Fingerstick) 210 mg/dL (70-99) 147 mg/dL (70-99) 194 mg/dL (70-99) 117 mg/dL (70-99) Test 06/23/21 20:48 06/24/21 04:15 06/24/21 07:24 06/24/21 11:15 Glucose (Fingerstick) 141 mg/dL (70-99) 89 mg/dL (70-99) White Blood Count 7.9 x10^3/uL (4.0-11.0) Red Blood Count 2.88 x10^6/uL (3.50-5.40) Hemoglobin 9.1 g/dL (12.0-15.5) Hematocrit 27.6 % (36.0-47.0) Mean Corpuscular Volume 96 fL (79-100) Mean Corpuscular Hemoglobin 32 pg (25-35) Mean Corpuscular Hemoglobin Concent 33 g/dL (31-37) Red Cell Distribution Width 14.0 % (11.5-14.5) Platelet Count 342 x10^3/uL (140-400) Sodium Level 137 mmol/L (136-145) Potassium Level 4.6 mmol/L (3.5-5.1) Chloride Level 102 mmol/L (98-107) Carbon Dioxide Level 26 mmol/L (21-32) Anion Gap 9 (6-14) Blood Urea Nitrogen 30 mg/dL (7-20) Creatinine 1.1 mg/dL (0.6-1.0) Estimated GFR (Cockcroft-Gault) 52.2 BUN/Creatinine Ratio 27 (6-20) Glucose Level 67 mg/dL (70-99) Calcium Level 9.4 mg/dL (8.5-10.1) Total Bilirubin 0.3 mg/dL (0.2-1.0) Aspartate Amino Transf (AST/SGOT) 12 U/L (15-37) Alanine Aminotransferase (ALT/SGPT) 16 U/L (14-59) Alkaline Phosphatase 73 U/L (46-116) Total Protein 7.0 g/dL (6.4-8.2) Albumin 3.3 g/dL (3.4-5.0) Albumin/Globulin Ratio 0.9 (1.0-1.7) SARS-CoV-2 Antigen (Rapid) Negative (NEGATIVE) Test 06/24/21 11:17 Glucose (Fingerstick) 191 mg/dL (70-99) Laboratory Tests Test 06/23/21 20:48 06/24/21 04:15 06/24/21 07:24 06/24/21 11:15 Glucose (Fingerstick) 141 mg/dL (70-99) 89 mg/dL (70-99) White Blood Count 7.9 x10^3/uL (4.0-11.0) Red Blood Count 2.88 x10^6/uL (3.50-5.40) Hemoglobin 9.1 g/dL (12.0-15.5) Hematocrit 27.6 % (36.0-47.0) Mean Corpuscular Volume 96 fL (79-100) Mean Corpuscular Hemoglobin 32 pg (25-35) Mean Corpuscular Hemoglobin Concent 33 g/dL (31-37) Red Cell Distribution Width 14.0 % (11.5-14.5) Platelet Count 342 x10^3/uL (140-400) Sodium Level 137 mmol/L (136-145) Potassium Level 4.6 mmol/L (3.5-5.1) Chloride Level 102 mmol/L (98-107) Carbon Dioxide Level 26 mmol/L (21-32) Anion Gap 9 (6-14) Blood Urea Nitrogen 30 mg/dL (7-20) Creatinine 1.1 mg/dL (0.6-1.0) Estimated GFR (Cockcroft-Gault) 52.2 BUN/Creatinine Ratio 27 (6-20) Glucose Level 67 mg/dL (70-99) Calcium Level 9.4 mg/dL (8.5-10.1) Total Bilirubin 0.3 mg/dL (0.2-1.0) Aspartate Amino Transf (AST/SGOT) 12 U/L (15-37) Alanine Aminotransferase (ALT/SGPT) 16 U/L (14-59) Alkaline Phosphatase 73 U/L (46-116) Total Protein 7.0 g/dL (6.4-8.2) Albumin 3.3 g/dL (3.4-5.0) Albumin/Globulin Ratio 0.9 (1.0-1.7) SARS-CoV-2 Antigen (Rapid) Negative (NEGATIVE) Test 06/24/21 11:17 Glucose (Fingerstick) 191 mg/dL (70-99) Medications Current Medications Sodium Chloride 1,000 ml @ 1,000 mls/hr 1X ONCE IV Last administered on 06/20/21at 11:05; Start 06/20/21 at 11:45; Stop 06/20/21 at 12:44; Status DC Acetaminophen (Tylenol) 650 mg PRN Q4HRS PRN PO MILD pain or fever Last administered on 06/24/21at 00:03; Start 06/20/21 at 22:15; Stop 06/24/21 at 14:08; Status DC Aspirin (Aspirin Chewable) 81 mg DAILY PO Last administered on 06/24/21at 08:36; Start 06/21/21 at 09:00; Stop 06/24/21 at 14:08; Status DC Cetirizine HCl (ZyrTEC) 10 mg DAILY PO Last administered on 06/24/21at 08:36; S tart 06/21/21 at 09:00; Stop 06/24/21 at 14:08; Status DC Fluticasone Propionate (Flonase) 2 spray PRN DAILY PRN NS ALLERGIES; Start 06/20/21 at 22:15; Stop 06/24/21 at 14:08; Status DC Insulin Human Lispro (HumaLOG) 6 units TIDWMEALS SQ Last administered on 06/23/21at 18:29; Start 06/21/21 at 08:00; Stop 06/24/21 at 14:08; Status DC Magnesium Oxide (Magnesium Oxide) 400 mg DAILY PO Last administered on 06/24/21at 08:36; Start 06/21/21 at 09:00; Stop 06/24/21 at 14:08; Status DC Metoprolol Tartrate (Lopressor) 25 mg BID PO Last administered on 06/24/21at 08:37; Start 06/20/21 at 23:00; Stop 06/24/21 at 14:08; Status DC Ticagrelor (Brilinta) 90 mg BID PO Last administered on 06/24/21at 08:36; Start 06/21/21 at 09:00; Stop 06/24/21 at 14:08; Status DC Tramadol HCl (Ultram) 50 mg PRN Q6HRS PRN PO MODERATE PAIN, SEVERE PAIN; Start 06/20/21 at 22:15; Stop 06/24/21 at 14:08; Status DC Venlafaxine HCl (Effexor) 75 mg DAILY PO Last administered on 06/24/21at 08:36; Start 06/21/21 at 09:00; Stop 06/24/21 at 14:08; Status DC Albuterol Sulfate (Ventolin Neb Soln) 2.5 mg Q4HRS W/A NEB ; Start 06/21/21 at 06:00; Stop 06/22/21 at 09:38; Status DC Atorvastatin Calcium (Lipitor) 80 mg HS PO Last administered on 06/23/21at 20:57; Start 06/20/21 at 23:00; Stop 06/24/21 at 14:08; Status DC Bumetanide (Bumex) 2 mg DAILY PO ; Start 06/21/21 at 09:00; Stop 06/22/21 at 15:39; Status DC Cyanocobalamin (Vitamin B-12) 1,000 mcg DAILY PO Last administered on 06/24/21at 08:36; Start 06/21/21 at 09:00; Stop 06/24/21 at 14:08; Status DC Ferrous Sulfate (Feosol) 325 mg BIDWMEALS PO Last administered on 06/24/21at 08:36; Start 06/21/21 at 08:00; Stop 06/24/21 at 14:08; Status DC Folic Acid (Folic Acid) 1 mg DAILY PO Last administered on 06/24/21at 08:36; Start 06/21/21 at 09:00; Stop 06/24/21 at 14:08; Status DC Insulin Glargine (Lantus Syringe) 20 unit QHS SQ Last administered on 06/23/21at 21:02; Start 06/20/21 at 22:45; Stop 06/24/21 at 14:08; Status DC Menthol/Methyl Salicylate (Bengay Greaseless Cream) 1 benjamin PRN Q4HRS PRN TP MUSCLE PAIN; Start 06/20/21 at 22:45; Stop 06/24/21 at 14:08; Status DC Mirtazapine (Remeron) 30 mg QHS PO Last administered on 06/23/21at 20:57; Start 06/20/21 at 23:00; Stop 06/24/21 at 14:08; Status DC Albuterol/ Ipratropium (Duoneb) 3 ml RTQID NEB Last administered on 06/24/21at 11:14; Start 06/21/21 at 08:00; Stop 06/24/21 at 14:08; Status DC Regadenoson (Lexiscan) 0.4 mg 1X ONCE IV ; Start 06/22/21 at 08:45; Stop 06/22/21 at 08:46; Status DC Bumetanide (Bumex) 1 mg DAILY PO Last administered on 06/24/21at 08:36; Start 06/23/21 at 09:00; Stop 06/24/21 at 14:08; Status DC Perflutren Protein Type A Microsphe (Optison) 0.66 mg 1X ONCE IV ; Start 06/24/21 at 07:45; Stop 06/24/21 at 07:46; Status DC Regadenoson (Lexiscan) 0.4 mg STK-MED ONCE IV ; Start 06/22/21 at 09:30; Stop 06/24/21 at 09:03; Status DC Active Scripts Active Bumetanide 1 Mg Tablet 1 Tab PO DAILY 30 Days Reported Zyrtec (Cetirizine Hcl) 10 Mg Tablet 1 Tab PO DAILY Venlafaxine Hcl 75 Mg Tablet 75 Mg PO DAILY Tramadol Hcl 50 Mg Tablet 50 Mg PO PRN Q6HRS PRN Spiriva (Tiotropium [place]) 18 Mcg Cap.w.dev 2 Inh IH DAILY Mirtazapine 30 Mg Tablet 1 Tab PO QHS Metoprolol Tartrate 25 Mg Tablet 1 Tab PO BID Magnesium Oxide 400 Mg Tablet 1 Tab PO DAILY Lipitor (Atorvastatin Calcium) 80 Mg Tablet 80 Mg PO HS Lantus Solostar (Insulin Glargine,Hum.rec.anlog) 100 Unit/1 Ml Insuln.pen 20 Unit SQ QHS Humalog (Insulin Lispro) 100 Unit/1 Ml Vial 6 Unit SQ TIDBFRMEAL Folic Acid 0.4 Mg Tablet 1 Mg PO DAILY Fluticasone Propionate Nasal [place] (Fluticasone Propionate) 16 Gm [place].susp 2 [place] NS DAILY PRN Ferrous Fumarate 324 Mg Tablet 1 Tab PO BID 30 Days B-12 (Cyanocobalamin (Vitamin B-12)) 1,000 Mcg Tablet.er 1 Tab PO DAILY 30 Days Brilinta (Ticagrelor) 90 Mg Tablet 90 Mg PO BID Biofreeze (Menthol) 118 Ml Gel..ml. 1 Benjamin TP PRN Q4HRS PRN 7 Days Aspirin 81 Mg Tab.chew 1 Tab PO DAILY Albuterol Sulfate Conc Neb Soln (Albuterol Sulfate) 2.5 Mg/0.5 Ml Vial.neb 1 Vial NEB Q4HRS Acetaminophen 325 Mg Tablet 2 Tab PO PRN Q4HRS PRN 30 Days Vitals/I & O Vital Sign - Last 24 Hours 06/23/21 06/23/21 06/23/21 06/23/21 19:00 20:00 20:57 23:17 Temp 97.9 98.5 97.9 98.5 Pulse 99 95 97 Resp 18 16 B/P (MAP) 102/50 (67) 102/50 109/62 (78) Pulse Ox 99 98 O2 Delivery Room Air Room Air Room Air 06/24/21 06/24/21 06/24/21 06/24/21 03:26 07:00 07:32 08:00 Temp 98.0 97.8 98.0 97.8 Pulse 91 86 Resp 18 16 B/P (MAP) 105/63 (77) 107/65 (79) Pulse Ox 95 98 98 O2 Delivery Room Air Room Air Room Air Room Air 06/24/21 06/24/21 06/24/21 08:37 11:00 11:14 Temp 97.4 97.4 Pulse 86 86 Resp 18 B/P (MAP) 107/65 102/55 (71) Pulse Ox 100 99 O2 Delivery Room Air Room Air Intake and Output0 06/23/21 06/23/21 06/24/21 15:00 23:00 07:00 Intake Total 280 ml 680 ml 0 ml Output Total 450 ml 300 ml Balance 280 ml 230 ml -300 ml Justifications for Admission Other Justification REGINE PARTIDA MD Jun 24, 2021 17:51
== END 2021-06-24 14:07 | DRG 313 ==
LOC: ER 10:22 → 6 SOUTH 11:30
PROVIDERS: ADMIT Internal Medicine; ATTEND Internal Medicine
DX: R07.89 Other chest pain (principal); E78.5 Hyperlipidemia, unspecified; F17.210 Nicotine dependence, cigarettes, uncomplicated; I11.0 Hypertensive heart disease with heart failure; I25.10 Atherosclerotic heart disease of native coronary artery without angina pectoris; I25.2 Old myocardial infarction; I25.5 Ischemic cardiomyopathy; I50.9 Heart failure, unspecified; E03.9 Hypothyroidism, unspecified; E11.9 Type 2 diabetes mellitus without complications; E78.00 Pure hypercholesterolemia, unspecified; J44.9 Chronic obstructive pulmonary disease, unspecified; Z82.49 Family history of ischemic heart disease and other diseases of the circulatory system; Z20.822 Contact with and (suspected) exposure to COVID-19; Z86.73 Personal history of transient ischemic attack (TIA), and cerebral infarction without residual deficits; Z95.5 Presence of coronary angioplasty implant and graft; Z90.49 Acquired absence of other specified parts of digestive tract; Z88.0 Allergy status to penicillin
CPT/HCPCS: 36415; 71045; 78452; 80048; 80053; 80061; 81001; 82962; 83690; 83735; 83880; 84484; 85025; 85027; 87426; 93005; 93017; 94640; 94760; 96360; A9500; J1815; J2785; J7030; 99285-25; G0378